=== PATIENT | female | born 1990 | race African-American/Black ===

== ENCOUNTER 2018-01-09 10:28 | Inpatient (IN) | payer OTHER ==
[~2018-01-09] VITALS: Ht 167.6 cm; Wt 118.2 kg
[2018-01-09] VITALS (16 sets, daily range): BP systolic 107–153; BP diastolic 60–89; PULSE 80–142; TEMP 98–98.8
[~2018-01-09 10:28] MED LIST: MOTRIN 600600 MG/TAB PO; NO HOME MEDICATIONS; PRENATAL1 TA1 PO; VENTOLIN H0.09 MG/AC IH
[2018-01-09 11:15] LABS: BASO % 0.2 % (0.0-2.0); EOS # 0.2 (0.0-0.7); EOS % 1.6 % (0-4.0); GRAN # 10.3 (1.4-6.5); GRAN % 78.1 % (42.2-75.2); HEMOGLOBIN 11.4 g/dl (12.5-16.0); LYMPH # 1.7 (1.2-3.4); LYMPH % 12.6 % (20.0-51.0); MEAN CELL VOLUME 77 fl (80.0-100.0); MEAN CORPUSCULAR HEMOGLOBIN 25 pg (27.0-31.0); MEAN CORPUSCULAR HGB CONC 32 g/dl (33.0-37.0); MONO # 0.9 (0.1-0.6); PLATELET COUNT 277 K/mm3 (130-400); RED BLOOD COUNT 4.56 M/mm3 (4.10-5.30); REDCELL DISTRIBUTION WIDTH-CV 14.5 % (11.5-14.5)
[2018-01-09 11:19] LABS: HEMATOCRIT 35.2 % (37.0-47.0)
[2018-01-10 07:35] VITALS: BP 131/90; PULSE 94; TEMP 98.6
[2018-01-10] MEDS ORDERED: IBU800 M1 PO (11:46)
[2018-01-10 16:40] VITALS: BP 129/88; PULSE 87; TEMP 97.4
== END 2018-01-10 18:10 | disposition home or self-care (01) | DRG 775 ==
LOC: LDRO 10:28 → LDR 11:07 → OB 11:07
PROVIDERS: Obstetrics & Gynecology
PROC: 10D07Z6 Extraction of Products of Conception, Vacuum, Via Natural or Artificial Opening (ICD-10-PCS; principal; 2018-01-09)
PROC: 0KQM0ZZ Repair Perineum Muscle, Open Approach (ICD-10-PCS; 2018-01-09)
DX: O76 Abnormality in fetal heart rate and rhythm complicating labor and delivery (principal); O36.0930 Maternal care for other rhesus isoimmunization, third trimester, not applicable or unspecified; Z3A.39 39 weeks gestation of pregnancy; Z37.0 Single live birth; O70.1 Second degree perineal laceration during delivery
CPT/HCPCS: J2590; J2791; J7120